=== PATIENT | female | born 1990 | race Caucasian/White ===

== ENCOUNTER 2021-01-02 14:08 | Emergency (ER) | payer MEDICAID ==
[~2021-01-02] VITALS: Ht 167.6 cm; Wt 61.4 kg
[2021-01-02 14:26] VITALS: BP 114/73
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
--- NOTE | 2021-01-02 15:30 | NUR ---
madison keller'd at [id number]
== END 2021-01-02 20:00 | disposition home or self-care (01) ==
LOC: ER 19:55
DX: S80.01XA Contusion of right knee, initial encounter (principal); M25.461 Effusion, right knee; J45.909 Unspecified asthma, uncomplicated; F17.200 Nicotine dependence, unspecified, uncomplicated; Z72.89 Other problems related to lifestyle; Z88.0 Allergy status to penicillin; V86.56XA Driver of dirt bike or motor/cross bike injured in nontraffic accident, initial encounter; Y93.89 Activity, other specified; Y92.89 Other specified places as the place of occurrence of the external cause; Y99.8 Other external cause status
CPT/HCPCS: 29505; 73564; 99283